=== PATIENT | female | born 1950 | race Caucasian/White ===

== ENCOUNTER 2023-09-11 06:29 | Emergency (ER) | payer MEDICARE, OTHER, SELFPAY ==
[2023-09-11] VITALS (15 sets, daily range): BP systolic 152–190; BP diastolic 69–95; PULSE 67–96; RESP 13–23; TEMP 36.6–36.9; O2SAT 94–100
--- NOTE | 2023-09-11 07:08 | ECG_ITS ---
Measurements Intervals [place] Rate: 90 P: 40 MO: 176 QRS: -1 QRSD: 84 T: 11 QT: 352 QTc: 432 Interpretive Statements SINUS RHYTHM NORMAL ELECTROCARDIOGRAM NO PREVIOUS ECG AVAILABLE FOR COMPARISON Electronically Signed On 09-11-2023 7:43:48 CDT by Hung Multani M.D.
[2023-09-11 07:29] LABS: Basophils Percent Auto 0.5 % (0.2-1.2); Eosinophils Absolute Auto 0.1 K/mm3 (0-0.3); Eosinophils Percent Auto 0.8 % (0-4.4); Hematocrit 43.5 % (37.0-47.0); Hemoglobin 13.9 g/dL (12.0-15.0); Immature Granulocyte Absolute 0.03 K/mm3 (0.00-0.031); Immature Granulocyte Percent A 0.4 % (0-0.5); Lymphocytes Absolute Auto 2.23 K/mm3 (0.9-3.2); Lymphocytes Percent Auto 29.6 % (18.3-44.2); Mean Corpuscular Hemoglobin 27.6 pg (26-34); Mean Corpuscular Volume 86.5 fl (80-100); Mean Platelet Volume 10.9 fl (7.4-10.4); Monocytes Absolute Auto 0.6 K/mm3 (0.1-0.6); Monocytes Percent Auto 8.1 % (2.6-8.5); Neutrophils Absolute Auto 4.6 K/mm3 (1.3-6.7); Neutrophils Percent Auto 60.6 % (45.5-73.1); Platelet Count Result 318 k/mm3 (150-375); Red Blood Count 5.03 M/mm3 (4.2-5.4); Red Cell Distribution Width 14.2 % (11.5-14.5); White Blood Count 7.5 K/mm3 (4.5-10.0)
[2023-09-11 07:40] LABS: Alanine Aminotransferase 34 U/L (6-35); Albumin Level 4.4 g/dL (3.5-5.1); Alkaline Phosphatase 71 U/L (38-126); Anion Gap 7 mmol/L (8-16); Aspartate Amino Transferase 30 U/L (14-36); Bilirubin,Total 0.6 mg/dL (0.2-1.3); Blood Urea Nitrogen 15 mg/dL (7-17); Calcium 9.1 mg/dL (8.4-10.2); Carbon Dioxide 27 mmol/L (22-30); Chloride 103 mmol/L (98-107); Estimated CRCL calculation 47 ml/min; Estimated Glomerular Filt Rate > 60; Glucose 115 mg/dL (65-110); Magnesium 2.2 mg/dL (1.6-2.3); Potassium 3.8 mmol/L (3.4-5.0); Sodium 137 mmol/L (137-145)
--- NOTE | 2023-09-11 08:02 | ED.GENADULT ---
HPI - General Adult General Chief complaint: Arrhythmia/Palpitations Stated complaint: high blood pressure Time Seen by Provider: 09/11/23 06:54 History of Present Illness HPI narrative: 73-year-old female presented to the emergency department for evaluation of heart palpitations. Patient states approximately 2 months ago she had cataract surgery. Patient states that last night when she was lying in bed she had onset of heart palpitations. Patient denied any associated chest pain with this. Patient did call EMS on evaluation patient had normal abnormal heart rate. Patient was hypertensive but takes her lisinopril in the morning and has not taken it yet today. Patient also reports increased pressure in her ears bilaterally has been going on for the last 2 months. Patient states when she lays down she has popping in her ears. Related Data Home Medications Medication Instructions Recorded Confirmed lisinopril 40 mg tablet 40 mg PO DAILY 08/06/23 08/06/23 Allergies Allergy/AdvReac Type Severity Reaction Status Date / Time No Known Allergies Allergy Verified 09/11/23 09:42 Review of Systems Review of Systems: All systems reviewed & are unremarkable except as noted in HPI and below PMFSH Social History Social History (Updated 08/06/23 @ 10:51 by Cecille Urias [facility]) Smoking status: Never smoker Alcohol intake: current Substance use: never Lack of Transportation: No Lack of Food: Never True Current Housing: I Have Housing Concerned About Future Housing: No Difficulty Paying Gas/Electric Bills: No Difficulty Paying for Meds: No Currently Unemployed: No Education: High School Diploma/GED Difficulty w/ Childcare or Family Care: No Exam Narrative: APPEARANCE: Well appearing, no pain, no distress, well-nourished. HEAD: normocephalic, atraumatic. EYES: PERRLA/EOMI, conjunctivae clear. NOSE: Normal no drainage EARS: Effusions behind both TM THROAT: Pharynx clear, no exudate. NECK: Supple. No adenopathy, no masses. RESPIRATORY: Airway patent, respirations nonlabored. Clear to auscultation bilaterally, no rales, rhonchi, wheezing. CARDIOVASCULAR: Regular rate and rhythm without murmurs rubs or gallops. ABDOMINAL: Soft, nontender, nondistended, normal bowel sounds MUSCULOSKELETAL: Moves all extremities. Strength/ROM intact, No edema, No calf tenderness. NEURO: Alert. Cranial nerves II through XII intact. Grossly intact SKIN: Warm, dry. Normal Color Course Course Emergency Course: 73-year-old female presented the ED for evaluation of heart palpitations. Patient's heart rate was 72 and patient's blood pressure did improve even prior to the lisinopril. Patient was treated with her home dose of lisinopril and her home aspirin. Patient's blood pressure did improve. Patient is afebrile with no leukocytosis. Patient CMP had no significant abnormalities. Patient did feel improved with treatment. All questions concerns were addressed. Patient was comfortable with plan for discharge and close follow-up with her primary care physician. Patient was encouraged to follow-up for a Holter monitor. Vital Signs Vital signs: Vital Signs Temperature 98.5 F 09/11/23 06:32 Pulse Rate 93 09/11/23 06:32 Respiratory Rate 20 09/11/23 06:32 Blood Pressure 170/82 H 09/11/23 06:32 Pulse Oximetry 100 09/11/23 06:32 Oxygen Delivery Room Air 09/11/23 06:32 Temperature 98 F 09/11/23 07:00 Pulse Rate 69 09/11/23 10:26 Respiratory Rate 18 09/11/23 10:26 Blood Pressure 162/83 H 09/11/23 10:26 Pulse Oximetry 96 09/11/23 10:26 Oxygen Delivery Room Air 09/11/23 06:32 Medical Decision Making Differential Diagnosis Differential Diagnosis: Heart palpitations, atypical chest pain Vital Signs Vital Signs: Vital Signs Temperature 98.5 F 09/11/23 06:32 Pulse Rate 93 09/11/23 06:32 Respiratory Rate 20 09/11/23 06:32 Blood Pressure 170/82 H 09/11/23 06
[2023-09-11] MEDS: ASPIRIN 81 MG CHEWABLE TABLET 324 MG PO (08:06)
[2023-09-11] MEDS: lisinopriL 20 MG TABLET 40 MG PO (08:06)
== END 2023-09-11 10:38 | disposition home or self-care (01) ==
PROVIDERS: Emergency Provider Emergency Medicine
DX: R00.2 Palpitations (principal)
CPT/HCPCS: 36415; 80053; 83735; 84443; 85025; 93005; 99283; A9270